=== PATIENT | male | born 1945 | race Caucasian/White ===

== ENCOUNTER 2017-02-26 07:11 | Day surgery (SDC) | payer MEDICARE ==
--- NOTE | ~2017-02-26 | EGD ---
EGD REPORT [facility] [address] [place] [id number] NAME: CASA TREVINO : [birth year] STATUS : [place] [facility] [place] [id number] AGE: 71 ADM/REG DATE : 02/26/17 MR#: [id number] REPORT SERV DATE: 02/26/17 DICTATED BY: SASCHA SAUNDERS DATE: 02/26/17 REPORT STATUS : Draft TRANSCRIBED BY: [employer] DATE: 02/26/17 [facility] Patient Name: Casa Trevino Date of : 1945 Attending MD: SASCHA SAUNDERS MD Procedure Date No Time: 02/26/2017 Procedure: Colonoscopy Indications: High risk colon cancer surveillance: Ulcerative colitis, , Last colon 02/2015 Referring MD: AHSAN AMAYA Medicines: See the Anesthesia note for documentation of the administered medications Complications: No immediate complications. Procedure: Pre-Anesthesia Assessment: - ASA Grade Assessment: III - A patient with severe systemic disease. After I obtained informed consent, the scope was passed under direct vision. Throughout the procedure, the patient's blood pressure, pulse, and oxygen saturations were monitored continuously. The [facility] [id number] was introduced through the anus and advanced to the terminal ileum, with identification of the appendiceal orifice and IC valve. The colonoscopy was performed without difficulty. The patient tolerated the procedure well. The quality of the bowel preparation was adequate. Findings: The perianal and digital rectal examinations were normal. The terminal ileum appeared normal. Internal hemorrhoids were found during retroflexion and were small. The ascending colon appeared normal. Biopsies were taken with a cold forceps for histology. The transverse colon appeared normal. Biopsies were taken with a cold forceps for histology. The descending colon appeared normal. Biopsies were taken with a cold forceps for histology. The sigmoid colon appeared normal. Biopsies were taken with a cold forceps for histology. The rectum appeared normal. Biopsies were taken with a cold forceps for histology. Impression: - The examined portion of the ileum was normal. - Internal hemorrhoids. - The ascending colon is normal. Biopsied. - The transverse colon is normal. Biopsied. EGD REPORT [address] [address] NAME: CASA TREVINO : [birth year] STATUS : [place] [facility] [place]#: [id number] AGE: 71 ADM/REG DATE : 02/26/17 MR#: [id number] REPORT SERV DATE: 02/26/17 DICTATED BY: SASCHA SAUNDERS DATE: 02/26/17 REPORT STATUS : Draft TRANSCRIBED BY: [employer] DATE: 02/26/17 - The descending colon is normal. Biopsied. - The sigmoid colon is normal. Biopsied. - The rectum is normal. Biopsied. Recommendation: - Patient has a contact number available for emergencies. The signs and symptoms of potential delayed complications were discussed with the patient. Return to normal activities tomorrow. Written discharge instructions were provided to the patient. - Regular diet. - Continue present medications. - Repeat colonoscopy in 2 years for surveillance. - Return to my office in 1 year. - FOR YOUR BIOPSY RESULTS: Please go to [email or web address] and register to receive your results via the portal. Your biopsy results will be posted there in about 7 to 10 days. IF you do not see result in 10 days, call office. - Resume Lovenox and coumadin today. Follow Dr Amaya recommendations. Procedure Code(s): --- Professional --- 03920, Colonoscopy, flexible, proximal to splenic flexure; with biopsy, single or multiple Diagnosis Code(s): --- Professional --- K64.8, Other hemorrhoids K51.90, Ulcerative colitis, unspecified, without complications CPT copyright 2013 [employer]. All rights reserved. The codes documented in this report are preliminary and upon church history professor review may be revised to meet current compliance requirements. Sascha Saunders MD SASCHA SAUNDERS MD 02/26/2017 8:40 AM This report has been signed electronically. Number of Addenda: 0 Note Initiated On: 02/26/2017 8:16 AM Scope Withdrawal Time 0 hours 11 minutes 32 seconds [id number] [id number]
[~2017-02-26 07:11] MED LIST: ASAB PO; C5 PO; COLAZAL750 MG PO; COLOZAL PO; COSOPT OPH; CRESTOR10 PO; FOLIC PO; LIPITOR20 PO; LOTEMAX0.5 % OP; PRIN10 PO; PRIN5 PO
== END 2017-02-26 23:59 | disposition home or self-care (01) ==
LOC: DMU 07:11
PROVIDERS: Internal Medicine Gastroenterology
PROC: 0DBP8ZX Excision of Rectum, Via Natural or Artificial Opening Endoscopic, Diagnostic (ICD-10-PCS; 2017-02-26)
PROC: 0DBN8ZX Excision of Sigmoid Colon, Via Natural or Artificial Opening Endoscopic, Diagnostic (ICD-10-PCS; 2017-02-26)
PROC: 0DBM8ZX Excision of Descending Colon, Via Natural or Artificial Opening Endoscopic, Diagnostic (ICD-10-PCS; 2017-02-26)
PROC: 0DBL8ZX Excision of Transverse Colon, Via Natural or Artificial Opening Endoscopic, Diagnostic (ICD-10-PCS; 2017-02-26)
PROC: 0DBK8ZX Excision of Ascending Colon, Via Natural or Artificial Opening Endoscopic, Diagnostic (ICD-10-PCS; principal; 2017-02-26 08:30)
DX: Z12.11 Encounter for screening for malignant neoplasm of colon (principal); K51.90 Ulcerative colitis, unspecified, without complications; K64.8 Other hemorrhoids; I10 Essential (primary) hypertension; Z86.73 Personal history of transient ischemic attack (TIA), and cerebral infarction without residual deficits; Z88.1 Allergy status to other antibiotic agents; Z79.82 Long term (current) use of aspirin; Z79.899 Other long term (current) drug therapy; Z98.49 Cataract extraction status, unspecified eye; Z98.890 Other specified postprocedural states
CPT/HCPCS: 88305; J2370